=== PATIENT | female | born 1975 | race Caucasian/White ===

== ENCOUNTER 2018-05-28 07:12 | Emergency (ER) | payer OTHER ==
[~2018-05-28] VITALS: Ht 167.6 cm; Wt 80.7 kg
[~2018-05-28 07:12] MED LIST: MULTIVITAMINS
[2018-05-28] MEDS ORDERED: FLEXERIL PO (08:25)
[2018-05-28] MEDS ORDERED: IBUPROFEN 400400 M2 PO (08:25)
[2018-05-28 09:00] VITALS: BP 143/80
== END 2018-05-28 09:01 | disposition home or self-care (01) ==
LOC: ER 07:12
DX: S00.511A Abrasion of lip, initial encounter (principal); M79.642 Pain in left hand; M25.562 Pain in left knee; M79.644 Pain in right finger(s); M79.89 Other specified soft tissue disorders; V89.2XXA Person injured in unspecified motor-vehicle accident, traffic, initial encounter; Y92.89 Other specified places as the place of occurrence of the external cause; Y93.89 Activity, other specified; Y99.8 Other external cause status